=== PATIENT | female | born 1980 | race Two or more races ===

== ENCOUNTER 2021-09-10 11:09 | Emergency (ER) | payer MEDICAID ==
[~2021-09-10] VITALS: Ht 162.6 cm; Wt 65.9 kg
[2021-09-10] MEDS ORDERED: KETOROLAC TROMETHAMINE 30 MG/ML VIAL IM ONE (12:30)
[2021-09-10] MEDS ORDERED: NAPR-1181 PO (13:44)
[2021-09-10 13:46] VITALS: BP 125/74
== END 2021-09-10 14:06 | disposition home or self-care (01) ==
LOC: EMS 11:16
DX: S83.92XA Sprain of unspecified site of left knee, initial encounter (principal); M13.841 Other specified arthritis, right hand; X58.XXXA Exposure to other specified factors, initial encounter; Y93.89 Activity, other specified; Y92.89 Other specified places as the place of occurrence of the external cause; Y99.8 Other external cause status
CPT/HCPCS: 73130; 73562; 96372; 99284; J1885